=== PATIENT | female | born 1995 | race Hispanic/Latino ===

== ENCOUNTER 2023-08-23 13:11 | Emergency (ER) | payer OTHER, SELFPAY ==
[2023-08-23 13:38] VITALS: BP 147/73; PULSE 86; RESP 18; TEMP 36.9; O2SAT 100
[2023-08-23 14:15] LABS: EDINFLUASCREEN Negative; EDINFLUBSCREEN Negative
--- NOTE | 2023-08-23 15:10 | ED.URI ---
HPI - URI/Sore Throat General Chief Complaint: Upper Respiratory Infection Stated Complaint: fever,sore throat,bodyaches Time Seen by Provider: 08/23/23 13:34 Source: family (mother) and health sanitarian Mode of arrival: ambulatory Limitations: no limitations History of Present Illness HPI Narrative: Mother presents patient today complaining of subjective fever, mild sore throat, itchy nose. Reports she did have a cough, but this has since resolved. Eating and drinking normally. Denies shortness of breath or difficulty swallowing. She has been receiving allergy medicine and Tylenol, which is helpful with symptoms. Patient is nonverbal and has some developmental delay, but unclear on specific diagnosis. Father and mother here for same complaints to be seen. Related Data Home Medications Medication Instructions Recorded Confirmed montelukast 10 mg tablet mg 08/23/23 Allergies Allergy/AdvReac Type Severity Reaction Status Date / Time No Known Allergies Allergy Verified 08/23/23 13:58 Review of Systems Review of Systems: CONSTITUTIONAL: Denies body aches, chills, or sweats.+ subjective fever and EYES: Denies visual changes, redness, or discharge. ENT: Denies rhinorrhea, congestion, or otalgia.+ sore throat, itching nose CARDIOVASCULAR: Denies chest pain, palpitations, or edema. RESPIRATORY: Denies dyspnea.+ the cough-resolved GASTROINTESTINAL: Denies abdominal pain, nausea, vomiting, or diarrhea. GENITOURINARY: Denies dysuria or hematuria. SKIN: Denies rash, itching, or wounds. MUSCULOSKELETAL: Denies back pain, joint pain, or myalgia. NEUROLOGIC: Denies headache, numbness, tingling, or weakness. PSYCH: Denies depression or anxiety. [facility] Past Medical History Medical History (Updated 08/23/23 @ 15:14 by Irene Garcia, INSURANCE [employer] REPRESENTATIVE, ) Nonverbal Comments At time of signature, I have reviewed and agree with nursing past medical, surgical, social and family history unless otherwise noted. Please see nursing chart for further information. There is no relevant family history pertinent to the presenting complaint Exam Narrative: GENERAL: Well-appearing, well-nourished, and in no acute distress. HEAD: Normocephalic, atraumatic. EYES: EOMI. No redness or drainage. Conjunctivae normal. ENT: Mucous membranes pink and moist. Nares clear. No rhinorrhea. TMs normal bilaterally. Throat normal. Uvula midline. NECK: Normal AROM. Supple. No lymphadenopathy. CHEST: No respiratory distress. Clear to auscultation. HEART: Regular rate and rhythm. No murmur appreciated. EXTREMITIES: Normal range of motion. No edema. SKIN: Warm, dry, no rash. Capillary refill normal. Normal skin turgor. NEURO: No focal deficits. Nonverbal Course Course Level of Care: Express Care Visit Vital Signs Vital signs: Vital Signs Temperature 98.5 F 08/23/23 13:38 Pulse Rate 86 08/23/23 13:38 Respiratory Rate 18 08/23/23 13:38 Blood Pressure 147/73 H 08/23/23 13:38 Pulse Oximetry 100 08/23/23 13:38 Oxygen Delivery Room Air 08/23/23 13:38 Temperature 98.5 F 08/23/23 13:38 Pulse Rate 86 08/23/23 13:38 Respiratory Rate 18 08/23/23 13:38 Blood Pressure 147/73 H 08/23/23 13:38 Pulse Oximetry 100 08/23/23 13:38 Oxygen Delivery Room Air 08/23/23 13:38 Reviewed MDM - URI/Sore Throat Differential Diagnosis Differential diagnosis: Likely upper respiratory infection, viral infection, influenza, pharyngitis and other (COVID-19) Medical Records Medical records narrative: COVID and influenza negative. Father has tested positive for COVID. Discussed with mother [id number] treatments induration of illness as well as ED precautions Lab Data Attestation: I reviewed the patient's lab results. Labs: Lab Results 08/23/23 08/23/23 Range/Units 13:50 14:12 POC Inf A,B Int Ctl Diamond Yes POC Influenza A Ag Negative POC Influenza B Ag Negative POC SARS CoV-2 Ag Negative
== END 2023-08-23 14:22 | disposition home or self-care (01) ==
PROVIDERS: Emergency Provider Nurse Practitioner; PCP Registered Nurse
DX: B34.9 Viral infection, unspecified (principal); Z20.822 Contact with and (suspected) exposure to COVID-19
CPT/HCPCS: 87426; 87804; 99213; G0463